=== PATIENT | male | born 1995 | race Caucasian/White ===

== ENCOUNTER 2018-01-08 12:00 | Emergency (ER) | payer BC ==
[2018-01-08] MEDS ORDERED: Sodium Chloride 0.9% 10 ML Syringe FLUSH PRN (12:13)
[2018-01-08] MEDS ORDERED: Sodium Chloride 0.9% 2.5 ML Syringe FLUSH PRN (12:13)
--- NOTE | 2018-01-08 12:17 | EDM.PDOC ---
ED HPI GENERAL MEDICAL PROBLEM - General Chief Complaint: Respiratory Problem Stated Complaint: COUGH Time Seen by Provider: 01/08/18 12:10 Source of Information: Reports: Patient History Limitations: Reports: No Limitations - History of Present Illness INITIAL COMMENTS - FREE TEXT/NARRATIVE: History of present illness: []Patient has had a cold for 2 weeks and 4 days ago his lungs started burning with worsening pain and fevers. Today he has right shoulder pain with coughing. Patient states he's had pneumonia several times when he was a child denies any other medical problems Review of systems: As per history of present illness and below otherwise all systems reviewed and negative. Past medical history: As per history of present illness and as reviewed below otherwise noncontributory. Surgical history: As per history of present illness and as reviewed below otherwise noncontributory. Social history: No reported history of drug or alcohol abuse. Family history: As per history of present illness and as reviewed below otherwise noncontributory. Physical exam: General: Well developed, well nourished in NAD no respiratory distress HEENT: Atraumatic, normocephalic, pupils reactive, negative for conjunctival pallor or scleral icterus, mucous membranes moist, throat clear, neck supple, nontender, trachea midline. Lungs: Decreased breath sounds on the right with crackles on the lef, chest nontender. No accessory muscle use Heart: S1S2, regular, negative for clicks, rubs, or JVD. Abdomen: Soft, nondistended, nontender. Negative for masses or hepatosplenomegaly. Negative for costovertebral tenderness. Pelvis: Stable nontender. Genitourinary: Deferred. Rectal: Deferred. Extremities: Atraumatic, negative for cords or calf pain. Neurovascular unremarkable. Neuro: Awake, alert, oriented. Cranial nerves II through XII unremarkable. Cerebellum unremarkable. Motor and sensory unremarkable throughout. Exam nonfocal. Diagnostics: []Tachycardic and febrile. CBC with elevated white count 16.9 with a left shift , blood cultures, chemistries are unremarkable, chest x-ray shows right hilar infiltrate, early pneumonia Therapeutics: []IV hydration with 1 L normal saline, Tylenol for fever, Toradol for pain, ceftriaxone IV While in the ED Impression: []Right lower lobe pneumonia without hypoxia Plan: []Patient prefers to go home and given he is not hypoxic or vomiting. I see no contraindication to this. He was given 1 dose of IV antibiotics here and will be put on a Z-Bradly and a prescription for albuterol. He can take Tylenol Motrin for fevers and body aches. He is to follow-up with his primary care doctor within a week. He is also told to return here if symptoms worsen or change. Definitive disposition and diagnosis as appropriate pending reevaluation and review of above. Head Pain Score (Numeric/FACES): 8 - Related Data Allergies Allergy/AdvReac Type Severity Reaction Status Date / Time No Known Allergies Allergy Verified 01/08/18 12:18 Home Meds: Home Meds Albuterol Sulfate [Ventolin Hfa] 8 gm IH Q4HR #1 hfa.aer.ad 01/08/18 [Rx] Azithromycin [IJD: Azithromycin] 250 mg PO DAILY #6 tab 01/08/18 [Rx] ED ROS GENERAL - Review of Systems Review Of Systems: See Below (See history of present illness) ED EXAM, GENERAL - Physical Exam Exam: See Below (See history of present illness) Course - Vital Signs Last Recorded V/S: Last Vital Signs Temp 102.0 F H 01/08/18 13:13 Pulse 128 H 01/08/18 13:13 Resp 20 01/08/18 13:13 BP 112/64 01/08/18 12:08 Pulse Ox 94 L 01/08/18 13:13 - Orders/Labs/Meds Orders: Active Orders 24 hr Category Date Time Status CULTURE BLOOD [BC] Stat Lab 01/08/18 12:25 Received CULTURE BLOOD [BC] Stat Lab 01/08/18 12:35 Received Sodium Chloride 0.9% [Saline Flush] Med 01/08/18 12:13 Active 10 ml FLUSH ASDIRECTED PRN Sodium Chloride 0.9% [Saline Flush] Med 01/08/18 12:13 Active 2.5 ml FLUSH ASDIRECTED PRN Blood Culture x2 Reflex Set [OM.PC] Stat Oth 01/08/18 12:14 Ordered Saline Lock Insert [OM.PC] Stat Oth 01/08/18 12:13 Ordered Medication Orders Sodium Chloride (Saline Flush) 10 ml FLUSH ASDIRECTED PRN PRN Reason: Keep Vein Open Last Admin: 01/08/18 13:02 Dose: 10 ml Sodium Chloride (Saline Flush) 2.5 ml FLUSH ASDIRECTED PRN PRN Reason: Keep Vein Open Last Admin: 01/08/18 13:02 Dose: 2.5 ml Labs: Laboratory Tests 01/08/18 01/08/18 Range/Units 12:25 12:25 WBC 16.93 H (4.0-11.0) K/uL RBC 5.11 (4.50-5.90) M/uL Hgb 15.5 (13.0-17.0) g/dL Hct 43.0 (38.0-50.0) % MCV 84.1 (80.0-98.0) fL MCH 30.3 (27.0-32.0) pg MCHC 36.0 (31.0-37.0) g/dL RDW Std Deviation 37.3 (28.0-62.0) fl RDW Coeff of Cecily 12 (11.0-15.0) % Plt Count 170 (150-400) K/uL MPV 10.30 (7.40-12.00) fL Neut % (Auto) 90.2 H (48.0-80.0) % Lymph % (Auto) 4.5 L (16.0-40.0) % Caswell % (Auto) 5.1 (0.0-15.0) % Eos % (Auto) 0.1 (0.0-7.0) % Baso % (Auto) 0.1 (0.0-1.5) % Neut # (Auto) 15.3 H (1.4-5.7) K/uL Lymph # (Auto) 0.8 (0.6-2.4) K/uL Caswell # (Auto) 0.9 H (0.0-0.8) K/uL Eos # (Auto) 0.0 (0.0-0.7) K/uL Baso # (Auto) 0.0 (0.0-0.1) K/uL Nucleated RBC % 0.0 /100WBC Nucleated RBCs # 0 K/uL Sodium 135 L (136-148) mmol/L Potassium 3.6 (3.5-5.1) mmol/L Chloride 98 (98-107) mmol/L Carbon Dioxide 25.0 (21.0-32.0) mmol/L BUN 9 (7.0-18.0) mg/dL Creatinine 1.1 (0.8-1.3) mg/dL Est Cr Clr Drug Dosing 101.12 mL/min Estimated GFR (MDRD) > 60.0 ml/min Glucose 95 (74-106) mg/dL Calcium 9.2 (8.5-10.1) mg/dL Total Bilirubin 1.1 H (0.2-1.0) mg/dL AST 14 L (15-37) U/L ALT 13 L (14-63) U/L Alkaline Phosphatase 86 (46-116) U/L Total Protein 7.7 (6.4-8.2) g/dL Albumin 3.4 (3.4-5.0) g/dL Globulin 4.3 H (2.0-3.5) g/dL Albumin/Globulin Ratio 0.8 L (1.3-2.8) Meds: Medications Generic Name Dose Route Start Last Admin Trade Name Freq PRN Reason Stop Dose Admin Sodium Chloride 10 ml 01/08/18 12:13 01/08/18 13:02 Saline Flush FLUSH 10 ml ASDIRECTED PRN Administration Keep Vein Open Sodium Chloride 2.5 ml 01/08/18 12:13 01/08/18 13:02 Saline Flush FLUSH 2.5 ml ASDIRECTED PRN Administration Keep Vein Open Discontinued Medications Generic Name Dose Route Start Last Admin Trade Name Freq PRN Reason Stop Dose Admin Acetaminophen 650 mg 01/08/18 12:35 01/08/18 13:00 Tylenol PO 01/08/18 12:36 650 mg NOW ONE Administration Sodium Chloride 1,000 mls @ 999 mls/hr 01/08/18 12:35 01/08/18 13:01 Normal Saline IV 01/08/18 13:35 999 mls/hr .Bolus ONE Administration Ceftriaxone Sodium/Dextrose 1 50 mls @ 100 mls/hr 01/08/18 12:37 01/08/18 13: 05 gm/ Premix IV 01/08/18 13:06 100 mls/hr ONETIME ONE Administration Ketorolac Tromethamine 30 mg 01/08/18 12:52 01/08/18 13:02 Toradol IVPUSH 01/08/18 12:53 30 mg ONETIME ONE Administration Departure - Departure Time of Disposition: 13:41 Disposition: Home, Self-Care 01 Condition: Good Clinical Impression: Right lower lobe pneumonia Qualifiers: Pneumonia type: due to unspecified organism Qualified Code(s): J18.1 - Lobar pneumonia, unspecified organism - Discharge Information Prescriptions: Albuterol Sulfate [Ventolin Hfa] 8 gm IH Q4HR #1 hfa.aer.ad Azithromycin [IJD: Azithromycin] 250 mg PO DAILY #6 tab Referrals: PCP,None [Primary Care Provider] - Forms: ED Department Discharge Additional Instructions: The following information is given to patients seen in the emergency department who are being discharged to home. This information is to outline your options for follow-up care. We provide all patients seen in our emergency department with a follow-up referral. The need for follow-up, as well as the timing and circumstances, are variable depending upon the specifics of your emergency department visit. If you don't have a primary care physician on staff, we will provide you with a referral. We always advise you to contact your personal physician following an emergency department visit to inform them of the circumstance of the visit and for follow-up with them and/or the need for any referrals to a consulting specialist. The emergency department will also refer you to a specialist when appropriate. This referral assures that you have the opportunity for follow-up care with a specialist. All of these measure are taken in an effort to provide you with optimal care, which includes your follow-up. Under all circumstances we always encourage you to contact your private physician who remains a resource for coordinating your care. When calling for follow-up care, please make the office aware that this follow-up is from your recent emergency room visit. If for any reason you are refused follow-up, please contact the [facility] at and asked to speak to the emergency department charge nurse. Zithromax, albuterol, increase fluids. Use Tylenol Motrin for pain and fevers follow-up with primary care or return to ER if symptoms worsen or change [facility] [place] [id number] - My Orders Last 24 Hours: My Active Orders 01/08/18 12:13 Sodium Chloride 0.9% [Saline Flush] 10 ml FLUSH ASDIRECTED PRN Sodium Chloride 0.9% [Saline Flush] 2.5 ml FLUSH ASDIRECTED PRN Saline Lock Insert [OM.PC] Stat 01/08/18 12:14 Blood Culture x2 Reflex Set [OM.PC] Stat 01/08/18 12:25 CULTURE BLOOD [BC] Stat 01/08/18 12:35 CULTURE BLOOD [BC] Stat - Assessment/Plan Last 24 Hours: My Active Orders 01/08/18 12:13 Sodium Chloride 0.9% [Saline Flush] 10 ml FLUSH ASDIRECTED PRN Sodium Chloride 0.9% [Saline Flush] 2.5 ml FLUSH ASDIRECTED PRN Saline Lock Insert [OM.PC] Stat 01/08/18 12:14 Blood Culture x2 Reflex Set [OM.PC] Stat 01/08/18 12:25 CULTURE BLOOD [BC] Stat 01/08/18 12:35 CULTURE BLOOD [BC] Stat
[2018-01-08] MEDS ORDERED: Sodium Chloride 0.9% 1,000 ML IV ONE (12:35)
[2018-01-08] MEDS ORDERED: Acetaminophen 325 MG Tab PO ONE (12:35)
[2018-01-08] MEDS ORDERED: cefTRIAXone 1 GM in Premix Bag 1 BAG IV ONE (12:37)
[2018-01-08] MEDS ORDERED: Ketorolac 30 MG/ML SDV IVPUSH ONE (12:52)
--- NOTE | 2018-01-08 13:10 | CR ---
EXAMINATION: Two-view chest (PA and Lateral views). HISTORY: Shortness of breath. FINDINGS: The trachea is midline. The cardiomediastinal silhouette is within normal limits. Mild right infrahil ar infiltrate. No pleural effusion or pneumothorax. Osseous structures appear unremarkable. IMPRESSION: Mild right infrahilar infiltrate, likely early pneumonia.
[2018-01-08 13:17] LABS: CHLORIDE,CL 98 mmol/L (98-107); SODIUM,NA 135 mmol/L (136-148)
== END 2018-01-08 14:42 | disposition home or self-care (01) ==
LOC: MW.ED 12:00
DX: J18.9 Pneumonia, unspecified organism (principal); Z79.899 Other long term (current) drug therapy
CPT/HCPCS: 36415; 71046; 80053; 85025; 87040; 96361; 96365; 96375; 99284; A9270; J0696; J1885; J7040; 87077; 87186

== ENCOUNTER 2023-12-09 14:28 | Emergency (ER) | payer BC ==
[2023-12-09] MEDS: Dexamethasone 10 MG/ML SDV IVPUSH ONE (16:16)
== END 2023-12-09 16:40 | disposition home or self-care (01) ==
LOC: MW.ED 14:28
DX: J02.0 Streptococcal pharyngitis (principal)
CPT/HCPCS: 87651; 96374; 99283; J1100

== ENCOUNTER 2025-01-01 09:41 | Emergency (ER) | payer BC | END 2025-01-01 10:08 | disposition home or self-care (01) | LOC: MW.ED 09:41 | DX: F41.9 Anxiety disorder, unspecified (principal); Z76.0 Encounter for issue of repeat prescription; Z79.899 Other long term (current) drug therapy | CPT/HCPCS: 99282; 99283 ==